=== PATIENT | male | born 1960 | race Caucasian/White ===

== ENCOUNTER → 2016-09-12 | Outpatient (CLI) | payer BC ==
[~2016-09-12] MED LIST: AMINOPHYLLINE 25 MG/ML, 10ML ONE; REGADENOSON 0.4 MG/5 ML SYRINGE ONE
== END | disposition home or self-care (01) ==
LOC: CFH 12:27
PROVIDERS: ATTEND Nurse Practitioner Primary Care
DX: M79.89 Other specified soft tissue disorders (principal); E78.2 Mixed hyperlipidemia; I51.7 Cardiomegaly; J45.909 Unspecified asthma, uncomplicated
CPT/HCPCS: 93306; 93971; J0280; J2785; 78452; 93017; A9502

== ENCOUNTER → 2016-10-26 | Outpatient (CLI) | payer BC | END | disposition home or self-care (01) | LOC: WOUND 11:00 | PROVIDERS: ATTEND Internal Medicine | DX: I87.2 Venous insufficiency (chronic) (peripheral) (principal); L97.812 Non-pressure chronic ulcer of other part of right lower leg with fat layer exposed; L97.822 Non-pressure chronic ulcer of other part of left lower leg with fat layer exposed; M10.9 Gout, unspecified; E78.5 Hyperlipidemia, unspecified; J45.909 Unspecified asthma, uncomplicated | CPT/HCPCS: 99214 ==

== ENCOUNTER → 2016-10-26 | Outpatient (CLI) | payer BC | END | disposition home or self-care (01) | LOC: CFH 06:45 | PROVIDERS: ATTEND Internal Medicine Infectious Disease | DX: L97.811 Non-pressure chronic ulcer of other part of right lower leg limited to breakdown of skin (principal); L97.821 Non-pressure chronic ulcer of other part of left lower leg limited to breakdown of skin | CPT/HCPCS: 93922; 93925; 93970 ==

== ENCOUNTER → 2017-01-23 | Outpatient (CLI) | payer BC ==
[~2017-01-23] MED LIST changes: -AMINOPHYLLINE 25 MG/ML, 10ML ONE; +OMNIPAQUE 350 MG/ML, 100ML BOTTLE ONE; -REGADENOSON 0.4 MG/5 ML SYRINGE ONE
== END | disposition home or self-care (01) ==
LOC: CFH 10:41
PROVIDERS: ATTEND Internal Medicine Cardiovascular Disease
DX: M47.894 Other spondylosis, thoracic region (principal); M48.04 Spinal stenosis, thoracic region; M25.78 Osteophyte, vertebrae; I72.2 Aneurysm of renal artery
CPT/HCPCS: 71275; Q9967

== ENCOUNTER → 2017-03-01 | Outpatient (CLI) | payer BC ==
[2017-03-01 12:25] LABS: HEMATOCRIT 51.2 % (39.2-51.8); WHITE BLOOD COUNT 6.1 x10^3/uL (3.4-10)
[2017-03-01 13:35] LABS: FERRITIN 99.2 ng/mL (26-388); PROSTATE SPECIFIC ANTIGEN 0.43 ng/mL (0.00-4.00)
== END | disposition home or self-care (01) ==
LOC: CFH 08:20
PROVIDERS: ATTEND Nurse Practitioner Primary Care
DX: Z13.220 Encounter for screening for lipoid disorders (principal); Z13.6 Encounter for screening for cardiovascular disorders; R94.31 Abnormal electrocardiogram [ECG] [EKG]; R53.83 Other fatigue; E78.2 Mixed hyperlipidemia; M10.9 Gout, unspecified; E55.9 Vitamin D deficiency, unspecified; L03.90 Cellulitis, unspecified; R06.83 Snoring; J45.909 Unspecified asthma, uncomplicated; R60.0 Localized edema; I51.7 Cardiomegaly; R79.89 Other specified abnormal findings of blood chemistry; Z90.81 Acquired absence of spleen; Z83.2 Family history of diseases of the blood and blood-forming organs and certain disorders involving the immune mechanism; Z79.899 Other long term (current) drug therapy
CPT/HCPCS: 36415; 80061; 81003; 82043; 82306; 82607; 82728; 82746; 83036; 83540; 83550; 84153; 84207; 84425; 84439; 84443; 84466; 84480; 84550; 85025; 85045; 93978

== ENCOUNTER → 2018-01-17 | Outpatient (CLI) | payer OTHER | END | disposition home or self-care (01) | LOC: CFH 15:15 | PROVIDERS: ATTEND Physician Assistant | DX: J45.909 Unspecified asthma, uncomplicated (principal); E78.2 Mixed hyperlipidemia; M10.9 Gout, unspecified; E55.9 Vitamin D deficiency, unspecified; R94.31 Abnormal electrocardiogram [ECG] [EKG]; R06.83 Snoring; R60.0 Localized edema; I51.7 Cardiomegaly; H61.23 Impacted cerumen, bilateral; G47.30 Sleep apnea, unspecified; E88.81 Metabolic syndrome and other insulin resistance; J06.0 Acute laryngopharyngitis; R53.83 Other fatigue; Z79.899 Other long term (current) drug therapy | CPT/HCPCS: 71046 ==

== ENCOUNTER → 2018-02-08 | Outpatient (CLI) | payer OTHER | END | disposition home or self-care (01) | LOC: CFH 14:50 | PROVIDERS: ATTEND Physician Assistant | DX: E78.2 Mixed hyperlipidemia (principal); E55.9 Vitamin D deficiency, unspecified; J45.909 Unspecified asthma, uncomplicated; I51.7 Cardiomegaly; E88.81 Metabolic syndrome and other insulin resistance; D45 Polycythemia vera; G47.30 Sleep apnea, unspecified; R53.83 Other fatigue; M10.9 Gout, unspecified; R06.83 Snoring; R60.0 Localized edema; R01.1 Cardiac murmur, unspecified; H61.23 Impacted cerumen, bilateral; R05 Cough; R79.9 Abnormal finding of blood chemistry, unspecified; H61.22 Impacted cerumen, left ear; Z79.899 Other long term (current) drug therapy | CPT/HCPCS: 36415; 83001; 83002; 84146 ==